=== PATIENT | male | born 1940 | race Caucasian/White ===

== ENCOUNTER 2020-03-12 08:49 | Day surgery (SDC) | payer MEDICARE, OTHER ==
[~2020-03-12] VITALS: Ht 177.8 cm; Wt 79.4 kg
[~2020-03-12 08:49] MED LIST: ASPIR-LOW81 MG PO; FISH OIL1 IU PO; FLOMAX 0.40.4 MG/CAP PO; HCTZ 25MG25 MG PO; NORVASC10 MG PO; TOPROL XL50 MG PO
[2020-03-12 09:11] VITALS: BP 147/80; PULSE 74; TEMP 97.4
[2020-03-12 10:30] VITALS: BP 129/70; PULSE 73; TEMP 97.1
--- NOTE | 2020-03-12 10:30 | NUR ---
1030-Patient ambulated with assistance from cart to recliner and he is doing well. Connected to monitors and vitals are stable. Son at bedside with him. 1035-Given coffee and a blueberry muffin per request. He denies having any nausea or abdominal pain at this time. 1040-Dr. Rutledge is in to speak with patient and his son regarding procedure findings.
[2020-03-12 10:45] VITALS: BP 126/73; PULSE 72
--- NOTE | 2020-03-12 10:45 | NUR ---
1045-Patient tolerated coffee and muffin without any N/V. Vitals remain stable. He is resting without any complaints or concerns. 1055-IV site removed and tip of catheter is intact. No active bleeding noted. Gauze and coban wrap applied to removal site.
[2020-03-12 11:00] VITALS: BP 134/77; PULSE 68
--- NOTE | 2020-03-12 11:00 | NUR ---
1100-Patient continues doing well and vitals are stable. He is dressed and ready for discharge home. 1110-Discussed discharge instructions with patient and his son. Copy provided to them. Both deny having any further questions or concerns at this time. 1115-Taken via wheelchair and assisted into private vehicle with his son, Erich. Belongings and discharge instructions with them.
== END 2020-03-12 11:15 | disposition home or self-care (01) ==
LOC: SDCO 08:49
DX: K29.50 Unspecified chronic gastritis without bleeding (principal); K44.9 Diaphragmatic hernia without obstruction or gangrene; K22.8 Other specified diseases of esophagus; I10 Essential (primary) hypertension; Z85.828 Personal history of other malignant neoplasm of skin; Z79.82 Long term (current) use of aspirin
CPT/HCPCS: J2704; J7120

== ENCOUNTER 2021-11-20 07:37 | Outpatient (CLI) | payer MEDICARE, OTHER ==
[2021-11-20] VITALS (7 sets, daily range): BP systolic 102–144; BP diastolic 56–76; PULSE 60–63; TEMP 98.2–98.6
[~2021-11-20] VITALS: Ht 177.8 cm; Wt 58.4 kg
[2021-11-20] MEDS ORDERED: LIPITOR 80MG80 MG PO (08:49)
[2021-11-20] MEDS ORDERED: PROAMATINE10 MG PO (08:49)
[2021-11-20] MEDS ORDERED: LEXAPRO 10MG10 MG PO (08:49)
[2021-11-20] MEDS ORDERED: PACERONE200 MG PO (08:50)
[2021-11-20] MEDS ORDERED: PROTONIX 40MG T40 MG PO (08:51)
[2021-11-20] MEDS ORDERED: K-DUR20 MEQ PO (08:51)
[2021-11-20] MEDS ORDERED: REMERON 15M15 MG/TA1 PO (08:52)
[2021-11-20] MEDS ORDERED: XARELTO20 MG PO (08:53)
[2021-11-20] MEDS ORDERED: ALDACTONE 25MG25 M1 PO (08:54)
[2021-11-20] MEDS ORDERED: TYLENOL 500MG500 MG PO (08:54)
--- NOTE | 2021-11-20 09:50 | NUR ---
Pt to [facility] bay [facility] via cart from ENDO. Pt awake and alert. Denies pain or shortness of breath. Bandid to Right back is clean, dry and intact. VSS. Water given per pt request. Will continue to monitor. Post op xray has been ordered. Rad Alexis notified.
--- NOTE | 2021-11-20 10:05 | NUR ---
Pt sleeping. Respirations even and unlabored. Call light within reach.
--- NOTE | 2021-11-20 10:20 | NUR ---
Pt continues to rest. Denies needs. Call light within reach.
--- NOTE | 2021-11-20 10:35 | NUR ---
Pt resting. Denies needs. Call light within reach.
--- NOTE | 2021-11-20 10:50 | NUR ---
This nurse speaks with radiologist. No pneumothorax identified. ok with dismissal.
--- NOTE | 2021-11-20 11:05 | NUR ---
Discharge instructions reviewed with pt and his granddaughter. They voice understanding. Pt up to dress. Call light within reach.
--- NOTE | 2021-11-20 11:25 | NUR ---
Pt escorted to private car via wheel chair. Pt accompanied home by his granddaughter.
[2021-11-20 16:15] LABS: PLEURAL FLUID RBC 3000 /mm3 (0-0); PLEURAL FLUID WBC 67 /mm3
[2021-11-20 16:17] LABS: PLEURAL FLUID APPEARANCE CLOUDY; PLEURAL FLUID COLOR YELLOW
== END 2021-11-20 11:25 | disposition home or self-care (01) ==
LOC: SDCO 07:37
PROVIDERS: Internal Medicine Pulmonary Disease
DX: J90 Pleural effusion, not elsewhere classified (principal); I50.20 Unspecified systolic (congestive) heart failure; R06.02 Shortness of breath; Z79.899 Other long term (current) drug therapy
CPT/HCPCS: 19804